=== PATIENT | female | born 1980 | race Hispanic/Latino ===

== ENCOUNTER 2018-11-15 05:46 | Inpatient (IN) | payer OTHER ==
[~2018-11-15] VITALS: Ht 170.2 cm; Wt 120.7 kg
[~2018-11-15 05:46] MED LIST: BRIN1TAB PO; IRON325T9 PO; PRAZ1CAP PO; TRAZ-163 PO; VITA500T PO
[2018-11-15] MEDS ORDERED: LIDOCAINE 1% MDV 20ML VIAL SQ PRN (06:00)
[2018-11-15] MEDS ORDERED: LR 1,000 ML IV ONE (06:00)
[2018-11-15 06:21] LABS: HEMATOCRIT 33.4 % (36.0-47.0); HEMOGLOBIN 9.9 g/dl (12.0-15.5)
[2018-11-15 06:31] LABS: INR 1.07; PROTHROMBIN TIME 13.6 SECONDS (11.8-14.0)
[2018-11-15 06:32] LABS: PARTIAL THROMBOPLASTIN TIME 24.9 SECONDS (25.0-38.4)
[2018-11-15 06:43] LABS: HCG, SERUM QUALITATIVE NEGATIVE (NEGATIVE)
[2018-11-15] MEDS ORDERED: BUPIVACAINE HCL 0.25% 30 ML VIAL As Ordered ONE (06:57)
[2018-11-15] MEDS ORDERED: ROCURONIUM BROMIDE 50 MG/5 ML VIAL As Ordered ONE ×3 (07:07→10:57)
[2018-11-15] MEDS ORDERED: PROPOFOL 200 MG/20 ML VIAL As Ordered ONE (07:07)
[2018-11-15] MEDS ORDERED: LIDOCAINE 2% INJ 100 MG/5 ML SDV (FOR ANES.) As Ordered ONE (07:07)
[2018-11-15] MEDS ORDERED: METOCLOPRAMIDE INJ 10MG/2ML VIAL (J2765) As Ordered ONE (07:12)
[2018-11-15] MEDS ORDERED: dexameTHASONE 4 MG/ML 1ML VIAL (J1100) As Ordered ONE (07:12)
[2018-11-15] MEDS ORDERED: MIDAZOLAM INJ 2 MG/2 ML VIAL (J2250) As Ordered ONE (07:13)
[2018-11-15] MEDS ORDERED: fentaNYL 100 MCG/2 ML INJECTION (J3010) As Ordered ONE (07:13)
[2018-11-15] MEDS ORDERED: ONDANSETRON 4MG/2ML VIAL (J2405) As Ordered ONE ×2 (07:34→11:45)
[2018-11-15] MEDS ORDERED: SUGAMMADEX SODIUM 500 MG/5 ML VIAL (BRIDION) As Ordered ONE (08:28)
[2018-11-15] MEDS ORDERED: ceFAZolin 2 GM/D5W 50 ML IV BAG (J0690 PER 500MG) As Ordered ONE (11:11)
[2018-11-15] MEDS ORDERED: HYDROmorphone HCL 2 MG/ML 1ML VIAL (J1170) As Ordered ONE (11:22)
[2018-11-15] MEDS ORDERED: ACETAMINOPHEN 1000MG 100ML IV BTL (OFIRMEV) (J0131 PER 10MG) As Ordered ONE (11:24)
[2018-11-15] MEDS ORDERED: KETOROLAC 60 MG/2 ML VIAL (J1885) As Ordered ONE (11:46)
[2018-11-15] MEDS ORDERED: FLUORESCEIN 10% (100MG/ML) 5 ML VIAL As Ordered ONE (12:29)
[2018-11-15] MEDS: LR 1,000 ML IV SCH ×2 (12:58→22:33)
[2018-11-15] MEDS ORDERED: PERCOCET 5MG/325MG TAB PO PRN ×2 (13:00)
[2018-11-15] MEDS: oxyCODONE 5MG TAB PO PRN ×2 (13:40→14:10)
[2018-11-15] MEDS ORDERED: LR 1,000 ML IV SCH (13:45)
[2018-11-15] MEDS ORDERED: ONDANSETRON 4MG/2ML VIAL (J2405) IV PRN (13:45)
[2018-11-15] MEDS ORDERED: PROMETHAZINE INJ 25 MG/ML VIAL (J2550) IV PRN (13:45)
[2018-11-15] MEDS ORDERED: fentaNYL 100 MCG/2 ML INJECTION (J3010) IV PRN (13:45)
[2018-11-15] MEDS ORDERED: HYDROMORPHONE HCL 0.5 MG/ 0.5 ML SYRINGE (J1170 PER 1) IV PRN (13:45)
[2018-11-15 14:45] VITALS: BP 165/101
[2018-11-15] MEDS: ONDANSETRON 4MG/2ML VIAL (J2405) IV PRN ×2 (14:57→23:01)
[2018-11-15] MEDS: DOCUSATE SODIUM 100 MG CAP PO SCH ×2 (14:58→22:33)
[2018-11-15] MEDS: KETOROLAC 30 MG/ML VIAL (J1885) IV PRN ×2 (15:01→21:00)
[2018-11-15 15:15] VITALS: BP 144/88
[2018-11-15] MEDS ORDERED: MORPHINE 4 MG/ML 1ML VIAL/SYRINGE (J2270) IV ONE (16:00)
[2018-11-15] MEDS ORDERED: PROMETHAZINE INJ 25 MG/ML VIAL (J2550) IV ONE ×2 (16:00→19:30)
[2018-11-15 17:15] VITALS: BP 146/89
[2018-11-15 19:15] VITALS: BP 133/86
--- NOTE | 2018-11-15 19:54 | RO ---
DATE OF PROCEDURE: 11/15/2018 PREOPERATIVE DIAGNOSES: 1. Abnormal uterine bleeding - adenomyosis/heavy menstrual bleeding/intermenstrual bleeding. 2. Anemia. POSTOPERATIVE DIAGNOSES: 1. Abnormal uterine bleeding - adenomyosis/heavy menstrual bleeding/intermenstrual bleeding. 2. Anemia. PROCEDURE: Laparoscopic-assisted vaginal hysterectomy, bilateral salpingectomy and cystoscopy. SURGEON: Danita Pulliam MD ANIMAL CONTROL OFFICER: Dr. Enrike Mackenzie CLINICAL SERVICE: Gynecology ANESTHESIA: INDICATIONS FOR OPERATION: Cassie is a 38-year-old 6, para 0-3-3-2 who had an ongoing history of abnormal uterine bleeding likely related to adenomyosis based on imaging. The abnormal uterine bleeding was heavy in nature, and she also had intermenstrual bleeding as well. All of this resulted in chronic anemia, and she desired definitive surgical management after counseling. MATERIAL FORWARDED TO THE LAB FOR EXAMINATION: 1. Uterus and cervix. 2. Portion of left fallopian tube. 3. Portion of right fallopian tube. DESCRIPTION OF FINDINGS: Laparoscopic inspection of the abdomen and pelvis revealed surgically absent gallbladder and appendix. The uterus was globular and enlarged. The ovaries were normal in appearance. The fallopian tubes were disrupted from prior tubal ligation. She had dense scarring of the bladder to the uterus consistent with her history of three prior sections. After closing the vaginal cuff laparoscopically, we reviewed the abdomen laparoscopically and noted hemostasis along the vaginal cuff. Postoperative cystoscopy showed jets from both of the ureteral ostia. INFECTION CLASSIFICATION: 2 ESTIMATED BLOOD LOSS: 250 mL IV FLUIDS: 2500 mL of lactated Ringer. URINE OUTPUT: 1500 mL of clear yellow urine. DESCRIPTION OF OPERATION: The patient was taken to the operating room. Bilateral sequential compression devices were placed. General endotracheal anesthesia was utilized. She was prepped and draped in a normal sterile fashion in the low lithotomy position. A time-out was performed to confirm patient name, date of , procedure and indication; the team was all in agreement. The patient received 2 grams of intravenous (IV) Ancef prophylactically and notably when the surgery exceeded 3 hours, she received a second dose of 2 grams of IV Ancef. A Mariscal catheter was placed. [place] speculum was placed in the vagina, and the anterior lip of the cervix was grasped with a single-tooth tenaculum. A figure-of-8 suture using #0 Vicryl was placed on the anterior lip of the cervix, and after sounding the uterus to 9 cm and then dilating the cervix sequentially with Hanks dilator. I placed a [employer] uterine manipulator through the cervix into the uterus, inflated the balloon and tied the manipulator down to the suture on the anterior lip of the cervix. The tenaculum was removed, and the speculum was also removed from the vagina. At that point, I went up to the abdomen and the patient was taken out of Trendelenburg position. I anesthetized with 0.25% Marcaine and then made a 5 mm incision in the infraumbilical fold beneath the subcutaneous tissue. The lower abdominal wall was manually grabbed and lifted up and an Optiview trocar was placed at a 90-degree angle. The laparoscope was advanced through the port and intra-abdominal placement was confirmed. There was no injury noted below the point of entry. Continuous low carbon dioxide began to establish a pneumoperitoneum at 15 mmHg pressure. We then made two other incisions, one in the right lower quadrant, one in the left lower quadrant, both 5 mm in size after anesthetizing with 0.25% Marcaine. 5 mm trocars were placed under direct visualization. Abdominopelvic survey were conducted beginning at the anterior cul-de-sac, which showed dense scarring of the bladder to the uterus consistent with history of prior sections. Uterus itself was globular and enlarged, but no obvious fibroids. The right and left fallopian tubes were interrupted from prior tubal ligation, otherwise normal in appearance. The round ligaments, broad ligaments and ovaries were observed to be normal in appearance. Posterior cul-de-sac was also observed to be normal. Survey of the upper abdomen revealed normal appearing liver edge, surgically absent gallbladder as well as appendix. At this point, I used the LigaSure device to transect the right broad ligament, and the utero-ovarian ligament was also transected using LigaSure. The anterior leaf of the broad ligament was opened, and we attempted to skeletonize the uterine arteries. This was done with the LigaSure down to level of the internal os. At that time, the right side portion of the bladder flap was made using LigaSure as well as using traction. The same procedure was done on the left side. We did have difficulty making the bladder flap given the dense adhesions, and I wanted to ensure there was safe distance between the bladder and the area where we were creating a bladder flap, so we backfilled the bladder with normal saline 210 mL and noted as we had been making the bladder flap that it was watertight, and we noted the area differentiation. The fluid was then removed from the bladder, and it was decompressed so that we could finish creating the bladder flap. The same procedure that we performed on the right side was done on the left side. We had some bleeding from the uterine arteries, but we were able to completely gain hemostasis using the LigaSure. Once adequate hemostasis was noted along the pedicle lines and there was good skeletonization over the cervix, we then performed the colpotomy using a laparoscopic L hook. We were able to do the front portion of the colpotomy, but we were struggling with keeping our pneumoperitoneum, so at that point we went below to finish the rest of the colpotomy vaginally and also performed the vaginal cuff closure. At that time, pneumoperitoneum was released. However, all trocars remained in place. The patient was placed in a high lithotomy position and a short weighted speculum was placed in the vagina with good visualization of the cervix. The cervix was grasped with two Terrance thyroid clamps. Cervix was pulled up. This was after the uterine manipulator had been removed, and Bovie cautery was then used to circumscribe the posterior aspect of the cervix and that was taken down to joint the prior colpotomy made laparoscopically, so that the cervix was completely released from the vaginal cuff. At that point, the uterus was delivered out through the vagina and passed off of the field. At that time, #0 Vicryl suture was used to put the posterior peritoneum and vaginal cuff together at the angles using interrupted sutures and then the vaginal cuff was entirely closed using #0 Vicryl sutures in several [id number]. The vagina was copiously irrigated after the closure was complete and hemostasis was noted. All instruments were removed from the vagina. We then turned our attention back to the abdomen where pneumoperitoneum was reestablished. Reevaluation of the abdomen and pelvis showed adequate hemostasis along all pedicle lines. We irrigated and suctioned and still noted hemostasis. We used the LigaSure device to remove the fimbria of the fallopian tubes, and these were passed off as a separate specimen. There was also hemostasis noted at those sites. The ports were then removed from the abdomen, all three, and the port sites were reapproximated with #4-0 Monocryl beneath the skin and then Dermabond overlying. There was hemostasis noted for all the incisions. At that point. I then performed cystoscopy in the usual fashion. The patient had been given fluorescein via IV by the anesthesia provider, and cystoscopy showed bilateral ureteral jets and a bubble was present at the dome of the bladder. Inspection all over the bladder revealed no defects, no sutures present, and so at that point, the cystoscope was removed from the urethra and the Mariscal catheter was replaced. The patient was taken out of lithotomy position. All counts were correct times two. The patient was awakened from general anesthesia and taken to recovery room in stable condition.
[2018-11-15] MEDS: MORPHINE 4 MG/ML 1ML VIAL/SYRINGE (J2270) IV PRN ×2 (20:52→23:07)
[2018-11-15] MEDS ORDERED: PRAZOSIN 1 MG CAP PO SCH (21:00)
[2018-11-15] MEDS ORDERED: traZODone 100 MG TAB PO SCH (21:00)
[2018-11-15 22:00] VITALS: BP 135/85
[2018-11-15 22:33] VITALS: BP 146/89
[2018-11-16] MEDS ORDERED: LORazepam 2 MG/ML VIAL (J2060) IV PRN (00:30)
[2018-11-16] MEDS ORDERED: PROMETHAZINE 25 MG SUPP PR ONE (00:30)
[2018-11-16 00:35] LABS: HEMATOCRIT 27.6 % (36.0-47.0); HEMOGLOBIN 8.1 g/dl (12.0-15.5); MEAN CORPUSCULAR HEMOGLOBIN 21.2 pg (27.0-33.0); MEAN CORPUSCULAR HGB CONC 29.3 g/dl (32.0-36.5); MEAN CORPUSCULAR VOLUME 72.3 fl (80.0-96.0); PLATELET COUNT, AUTOMATED 410 10^3/uL (150-450); RED BLOOD COUNT 3.82 10^6/uL (4.00-5.40); WHITE BLOOD COUNT 16.7 10^3/uL (4.0-10.0)
[2018-11-16 02:00] VITALS: BP 97/58
[2018-11-16 02:15] VITALS: BP 96/52
[2018-11-16 04:09] VITALS: BP 96/66
[2018-11-16] MEDS: KETOROLAC 30 MG/ML VIAL (J1885) IV PRN (04:25)
[2018-11-16] MEDS: LR 1,000 ML IV SCH ×2 (04:58→12:58)
[2018-11-16 06:12] VITALS: BP 96/62
[2018-11-16 08:03] LABS: BASO # 0.1 10^3/uL (0.0-0.2); BASO % 0.4 % (0.0-1.0); EOS # 0.1 10^3/uL (0.0-0.50); EOS % 0.4 % (0.0-3.0); HEMATOCRIT 24.4 % (36.0-47.0); HEMOGLOBIN 7.2 g/dl (12.0-15.5); LYMPH # 2.6 10^3/uL (1.5-4.5); LYMPH % 20.8 % (24.0-44.0); MEAN CORPUSCULAR HEMOGLOBIN 21.7 pg (27.0-33.0); MEAN CORPUSCULAR HGB CONC 29.5 g/dl (32.0-36.5); MEAN CORPUSCULAR VOLUME 73.5 fl (80.0-96.0); MONO # 0.9 10^3/uL (0.0-0.8); MONO % 7.3 % (0.0-5.0); NEUTROPHILS # 8.9 10^3/uL (1.8-7.7); NEUTROPHILS % 70.8 % (36.0-66.0); PLATELET COUNT, AUTOMATED 339 10^3/uL (150-450); RED BLOOD COUNT 3.32 10^6/uL (4.00-5.40); WHITE BLOOD COUNT 12.5 10^3/uL (4.0-10.0)
[2018-11-16] MEDS: DOCUSATE SODIUM 100 MG CAP PO SCH (09:57)
[2018-11-16 10:00] VITALS: BP 145/95
[2018-11-16] MEDS ORDERED: PERCOCET PO (13:18)
[2018-11-16] MEDS ORDERED: COLA100C5 PO (13:18)
--- NOTE | 2018-11-16 13:27 | IPNPDOC ---
Text Note Date of Service The patient was seen on 11/16/18. NOTE Post-op Day 1 Cassie is a 38-year-old doing well on POD 1 s/p uncomplicated LAVH with bilateral salpingectomy and cystoscopy on 11/16/18 that was performed for longstanding hx of anemia related to AUB-A/HMB/IMB. She had a difficult night related to her chronic cyclic vomiting disorder which is exacerbated by pain and anxiety. Ultimately around midnight we got her dry heaving under control with phenergan and pain medications and she was finally able to rest. She is now tolerating small amount of regular diet without further emesis, hydrating well. Voiding spontaneously without issue, ambulating without lightheadedness/dizziness. No BM yet. Had some scant spotting right after surgery that completely stopped. No f/c/SOB/CP. Vitals wnl, afebrile General: WDWN, NAD, sitting in bed comfortably Abdomen: soft, obese, NT/ND, no rebound/guarding, 3 trocar sites are intact with dermabond overlying and no erythema/induration/drainage Extremities: no edema Labs: pre-op H/H: 9.9/33.4 post-op H/H: 8.1/27.6 --> 7.2/24.4 Assessment: Cassie is a 38-year-old doing well on POD 1 s/p uncomplicated LAVH with bilateral salpingectomy and cystoscopy on 11/16/18 that was performed for longstanding hx of anemia related to AUB-A/HMB/IMB. She has cyclic vomiting disorder that is exacerbated with any pain/anxiety, so she had an exacerbation last night that resolved with anti-emetics and pain medications- doing well now, tolerating PO intake. Vitals wnl, benign exam. Appropriate change in H/H for surgical ebl. Hemodynamically stable with no e/o infection. Patient desires discharge. Plan: -discharge to home with follow-up with me in clinic in 2 weeks as scheduled -has home meds: percocet, motrin, colace and new Rx of rectal phenergan her will garbage pick up worker at the pharmacy for her prior to discharge -discussed return precautions: fevers/chills, increasing pain not responsive to pain meds, inability to tolerate PO and keep down pain meds, any signs of wound infection, heavy vaginal bleeding or foul odor -no heavy lifting and no intercourse for at least 6 weeks -keep incisions clean and dry -regular diet, encourage ambulation Dr. Danita Pulliam MD VS,Soumya, I+O VS, Soumya I+O Laboratory Tests 11/16/18 00:27 Red Blood Count 3.82 L, Mean Corpuscular Volume 72.3 L, Mean Corpuscular Hemoglobin 21.2 L, Mean Corpuscular Hemoglobin Concent 29.3 L, Red Cell Distribution Width 18.3 H 11/16/18 07:47 Red Blood Count 3.32 L, Mean Corpuscular Volume 73.5 L, Mean Corpuscular Hemoglobin 21.7 L, Mean Corpuscular Hemoglobin Concent 29.5 L, Red Cell Distribution Width 18.2 H, Neutrophils (%) (Auto) 70.8 H, Lymphocytes (%) (Auto) 20.8 L, Monocytes (%) (Auto) 7.3 H, Eosinophils (%) (Auto) 0.4, Basophils (%) (Auto) 0.4, Neutrophils # (Auto) 8.9 H, Lymphocytes # (Auto) 2.6, Monocytes # (Auto) 0.9 H, Eosinophils # (Auto) 0.1, Basophils # (Auto) 0.1 Vital Signs Date Time Temp Pulse Resp B/P (MAP) Pulse Ox O2 Delivery O2 Flow Rate FiO2 11/16/18 10:00 98.3 91 16 145/95 (112) 100 11/15/18 13:40 2.0 I&O- Last 24 Hours up to 6 AM0 11/16/18 06:00 Intake Total 2890 ml Output Total 2200 ml Balance 690 ml Danita Pulliam MD Nov 16, 2018 13:27
--- NOTE | 2018-11-16 13:30 | DS.PDOC ---
Discharge Summary General Date of Admission Nov 15, 2018 at 05:46 Date of Discharge November 16, 2018 Attending Physician: Danita Pulliam MD Discharge Summary PROCEDURES PERFORMED DURING STAY: LAVH, bilateral salpingectomy, cystoscopy ADMITTING DIAGNOSES: 1. AUB-A/HMB/IMB 2. anemia DISCHARGE DIAGNOSES: 1. AUB-A/HMB/IMB 2. anemia COMPLICATIONS/CHIEF COMPLAINT: Abnormal Uterine Bleeding, Adenomyosis, Anemia. HISTORY OF PRESENT ILLNESS/HOSPITAL COURSE: Cassie is a 38-year-old doing well on POD 1 s/p uncomplicated LAVH with bilateral salpingectomy and cystoscopy on 11/16/18 that was performed for longstanding hx of anemia related to AUB-A/HMB/IMB. She has cyclic vomiting disorder that is exacerbated with any pain/anxiety, so she had an exacerbation last night that resolved with anti-emetics and pain medications- doing well now, tolerating PO intake. Vitals wnl, benign exam. Appropriate change in H/H for surgical ebl. Hemodynamically stable with no e/o infection. Patient desires discharge. DISCHARGE MEDICATIONS: Please see below. ALLERGIES: Please see below. PHYSICAL EXAMINATION ON DISCHARGE: Vitals wnl, afebrile General: WDWN, NAD, sitting in bed comfortably Abdomen: soft, obese, NT/ND, no rebound/guarding, 3 trocar sites are intact with dermabond overlying and no erythema/induration/drainage Extremities: no edema LABORATORY DATA: pre-op H/H: 9.9/33.4 post-op H/H: 8.1/27.6 --> 7.2/24.4 DIET: regular DISPOSITION: home DISCHARGE PLAN/INSTRUCTIONS -discharge to home with follow-up with me in clinic in 2 weeks as scheduled -has home meds: percocet, motrin, colace and new Rx of rectal phenergan her will pharmacy picking technician at the pharmacy for her prior to discharge -discussed return precautions: fevers/chills, increasing pain not responsive to pain meds, inability to tolerate PO and keep down pain meds, any signs of wound infection, heavy vaginal bleeding or foul odor -no heavy lifting and no intercourse for at least 6 weeks -keep incisions clean and dry -regular diet, encourage ambulation DISCHARGE CONDITION: Stable TIME SPENT ON DISCHARGE: Greater than [address] Danita Pulliam MD Vital Signs/I&Os Vital Signs Date Time Temp Pulse Resp B/P (MAP) Pulse Ox O2 Delivery O2 Flow Rate FiO2 11/16/18 10:00 98.3 91 16 145/95 (112) 100 11/15/18 13:40 2.0 I&O- Last 24 Hours up to 6 AM 11/16/18 06:00 Intake Total 2890 ml Output Total 2200 ml Balance 690 ml Laboratory Data Labs 24H Laboratory Tests 2 11/16/18 00:27: Nucleated Red Blood Cells % (auto) 0.0 11/16/18 07:47: Nucleated Red Blood Cells % (auto) 0.0, Immature Granulocyte % (Auto) 0.3, White Blood Count 12.5H, Red Blood Count 3.32L, Hemoglobin 7.2L, Hematocrit 24.4L, Mean Corpuscular Volume 73.5L, Mean Corpuscular Hemoglobin 21.7L, Mean Corpuscular Hemoglobin Concent 29.5L, Red Cell Distribution Width 18.2H, Platelet Count 339, Neutrophils (%) (Auto) 70.8H, Lymphocytes (%) (Auto) 20.8L, Monocytes (%) (Auto) 7.3H, Eosinophils (%) (Auto) 0.4, Basophils (%) (Auto) 0.4, Neutrophils # (Auto) 8.9H, Lymphocytes # (Auto) 2.6, Monocytes # (Auto) 0.9H, Eosinophils # (Auto) 0.1, Basophils # (Auto) 0.1 CBC/BMP Laboratory Tests 11/16/18 00:27 Red Blood Count 3.82 L, Mean Corpuscular Volume 72.3 L, Mean Corpuscular Hemoglobin 21.2 L, Mean Corpuscular Hemoglobin Concent 29.3 L, Red Cell Distribution Width 18.3 H 11/16/18 07:47 Red Blood Count 3.32 L, Mean Corpuscular Volume 73.5 L, Mean Corpuscular Hemoglobin 21.7 L, Mean Corpuscular Hemoglobin Concent 29.5 L, Red Cell Distribution Width 18.2 H, Neutrophils (%) (Auto) 70.8 H, Lymphocytes (%) (Auto) 20.8 L, Monocytes (%) (Auto) 7.3 H, Eosinophils (%) (Auto) 0.4, Basophils (%) (Auto) 0.4, Neutrophils # (Auto) 8.9 H, Lymphocytes # (Auto) 2.6, Monocytes # (Auto) 0.9 H, Eosinophils # (Auto) 0.1, Basophils # (Auto) 0.1 Discharge Medications Scheduled Docusate Sodium (Colace) 100 Mg Capsule, 100 MG PO BID Prazosin Hcl (Prazosin HCl) 1 Mg Capsule, 1 MG PO QPM, (Reported) Trazodone HCl (Trazodone HCl) 100 Mg Tablet, 100 MG PO QPM, (Reported) Vortioxetine Hydrobromide (Trintellix) 5 Mg Tablet, 10 MG PO DAILY, (Reported) Scheduled PRN Oxycodone/Acetaminophen (Oxycodone-Acetaminophen 5-325) 1 Each Tablet, 2 TAB PO Q6HP PRN for SEVERE PAIN (PS 8-10) Allergies Coded Allergies: metoclopramide (Verified Allergy, Unknown, 11/15/18) diphenhydramine (Verified Adverse Reaction, Intermediate, muscle spasms, 11/15/18) ketamine (Verified Adverse Reaction, Mild, PREFERS NOT TO USE DOES NOT LIKE EFFECT, 11/15/18) Danita Pulliam MD Nov 16, 2018 13:30
== END 2018-11-16 15:30 | disposition home or self-care (01) | DRG 743 ==
LOC: M OR 05:46 → M MS5PR 14:20
PROVIDERS: ADMIT Obstetrics & Gynecology; ATTEND Obstetrics & Gynecology
PROC: 0UTC4ZZ Resection of Cervix, Percutaneous Endoscopic Approach (ICD-10-PCS; 2018-11-15)
PROC: 0UT74ZZ Resection of Bilateral Fallopian Tubes, Percutaneous Endoscopic Approach (ICD-10-PCS; 2018-11-15)
PROC: 0UT94ZZ Resection of Uterus, Percutaneous Endoscopic Approach (ICD-10-PCS; principal; 2018-11-15 07:30)
DX: N80.0 Endometriosis of uterus (principal); D64.9 Anemia, unspecified; N72 Inflammatory disease of cervix uteri; F17.210 Nicotine dependence, cigarettes, uncomplicated